=== PATIENT | female | born 1950 | race Caucasian/White ===

== ENCOUNTER 2017-06-24 10:17 | Emergency (ER) | payer OTHER ==
[2017-06-24] MEDS ORDERED: NS 500 ML IV ONE (11:05)
--- NOTE | 2017-06-24 11:10 | CPEKG ---
Heart Rate: 67 RR Interval: 896 P-R Interval: 160 QRSD Interval: 98 QT Interval: 388 QTC Interval: 410 P [place]: 47 QRS [place]: -7 T Wave [place]: 45 EKG Severity - NORMAL ECG - EKG Impression: SINUS RHYTHM Electronically Signed By: Tristen Fregoso 24-Jun-2017 15:34:09
[2017-06-24 11:46] LABS: % IMMATURE GRANULYOCYTES 0.5 % (0.0-1.1); ABSOLUTE IMMATURE GRANULOCYTES 0.05 10^3/uL (0.00-0.10); ADD DIFF? NO; ADD MORPH? NO; ADD SCAN? NO; ATYPICAL LYMPHOCYTE FLAG 0 (0-99); FRAGMENT RBC FLAG 0 (0-99); HEMOGLOBIN 15.7 g/dL (12.6-16.3); LEFT SHIFT FLG 0 (0-99); LIPEMIA HEMOLYSIS FLAG 90 (0-99); MEAN CELL HEMOGLOBIN 29.9 pg (27.9-34.1); MEAN CELL HEMOGLOBIN CONCENTR. 34.1 g/dL (32.4-36.7); MEAN CELL VOLUME 87.6 fL (81.5-99.8); MEAN PLATELET VOLUME 9.5 fL (8.7-11.7); PLATELET CLUMPS FLAG 0 (0-99); PLATELET COUNT 384 10^3/uL (150-400); RED BLOOD CELL COUNT 5.25 10^6/uL (4.18-5.33); RED CELL DISTRIBUTION WIDTH 13.2 % (11.5-15.2)
[2017-06-24 11:51] LABS: COLOR YELLOW; LEUKOCYTE ESTERASE,URINE NEGATIVE (NEGATIVE); NITRITE,URINE NEGATIVE (NEGATIVE)
[2017-06-24 11:56] LABS: INR 0.95 (0.83-1.16); PROTIME(PATIENT) 12.6 SEC (12.0-15.0)
[2017-06-24 11:57] LABS: APTT 24.1 SEC (23.0-38.0)
[2017-06-24 12:19] LABS: CREATINE KINASE-MB FRACTION 1.05 ng/mL (0.00-3.19); TROPONIN I < 0.012 ng/mL (0.000-0.034)
[2017-06-24 12:39] LABS: ANION GAP 10 mEq/L (8-16); CARBON DIOXIDE 23 mEq/l (22-31); CHLORIDE 101 mEq/L (97-110); CREATININE 0.8 mg/dL (0.6-1.0); GLOMERULAR FILTRATION RATE > 60; GLUCOSE 93 mg/dL (70-100); SODIUM 134 mEq/L (134-144)
--- NOTE | 2017-06-24 12:43 | EDPHY ---
H & P Time Seen by Provider: 06/24/17 10:20 HPI/ROS: HPI Fatigue, generalized weakness. 67-year-old female by private vehicle. She reports that she moved here from [place] about a month ago. She was supposed to move into a new apartment at this time. Her apartment has not been ready. She has been staying at friend's houses. She reports that since she has been out here she has felt fatigued and very low on energy. She also reports that she has not been sleeping well and has been very anxious. Sleeping only 4 hours a night and that she has felt her heart has been pounding. She denies any chest pain. She denies any shortness of breath at this time. No fever. No cough. ROS: Constitutional: No fever, no chills. As above. Eyes: No discharge. No changes in vision. ENT: No sore throat. No nasal congestion or rhinorrhea. Respiratory: No cough. No shortness of breath. Cardiac: No chest pain, as above. Gastrointestinal: No abdominal pain, no vomiting, no diarrhea. Genitourinary: No hematuria. No dysuria or increased frequency with urination. Musculoskeletal: No back pain. No neck pain. No myalgias or arthralgias. Skin: No rashes. Neurological: No headache. No focal weakness or altered sensation. Past medical history: COPD, asthma, hypertension. Social history: Former smoker. Denies alcohol. As above. Physical Exam: General Appearance: Alert, no distress. This patient is responding to questions appropriately and in full sentences. This patient appears well- hydrated and well-nourished. Eyes: Pupils equal and round no pallor or injection. No lid edema, erythema or injection. Respiratory: There are no retractions, lungs are clear to auscultation with good air movement bilaterally. No tachypnea. Cardiovascular: Regular rate and rhythm. No murmur. Gastrointestinal: Abdomen is soft and nontender, no masses, bowel sounds normal. No focal tenderness at McBurney's point. No Mireles sign. Neurological: Motor sensory function is grossly intact. Cranial nerves are normal. Gait is normal. Skin: Warm and dry, no rashes. Musculoskeletal: Neck is supple and nontender. Extremities are symmetrical. No significant lower extremity edema. All joints range without pain or impingement. Psychiatric: No agitation. No depression. Database: EKG: EKG time is 11:08 a.m.; EKG shows a narrow complex normal sinus rhythm with a ventricular rate of 67. The PA, QRS, QT intervals are within normal limits. There are no ST-T wave changes indicative of ischemic or injury pattern. No evidence of right heart strain. Interpreted by me. Imaging: Chest x-ray AP portable; the cardiac mediastinal silhouette is unremarkable. No evidence of infiltrate or pneumothorax. No acute cardiopulmonary disease process noted. Interpreted by me. Procedures: Emergency department course: IV placed. She was placed on a monitor. EKG performed and reviewed by myself. Vital signs have been reviewed and are normal. 12:50 p.m., patient re-evaluated. Resting comfortably at this time. I discussed the results of her emergency department workup with her including chest x-ray and EKG. I discussed possible mountain sickness affects from the altitude given that she recently moved from [place]. She also tells me that she thinks she has issues with anxiety. She does have a primary care physician at [facility]. She feels comfortable being discharged at this time. Plan will be to have her follow up with her primary care physician for re-evaluation in 2-3 days. I will also provide her with a take-home pack of Ativan for her anxiety. Has been instructed not to engage in any strenuous physical activity. Return to emergency department precautions were thoroughly reviewed with her. All of her questions were answered. She was discharged in good condition. Differential Diagnosis: The differential diagnosis on this patient includes but is not limited to altitude related illness, anxiety reaction. Pulmonary embolism, pneumonia, acute coronary syndrome, urinary tract infection, metabolic disorder, anemia unlikely. This represents a partial list of diagnoses considered. These considerations are based on history, physical exam, past history, reassessment and diagnostic testing. Smoking Status: Former smoker Constitutional: Initial Vital Signs Temperature (C) 36.5 C 06/24/17 10:38 Heart Rate 90 06/24/17 10:38 Respiratory Rate 17 06/24/17 10:38 Blood Pressure 123/90 H 06/24/17 10:38 O2 Sat (%) 96 06/24/17 10:38 O2 Delivery Mode Room Air Allergies/Adverse Reactions: No Known Allergies Allergy (Unverified 06/24/17 10:34) Home Medications: Medication Instructions Recorded ALENDRONATE SODIUM 06/24/17 Advair 100/50 (*) 06/24/17 Captopril 06/24/17 Incrose Elliptra 06/24/17 QUEtiapine FUMARATE 06/24/17 Symbicort 160-4.5 Mcg Inh (*) 06/24/17 buPROPion 06/24/17 traZODone 06/24/17 Medical Decision Making - Diagnostics Imaging Results: Imaging Impressions Chest X-Ray 06/24/17 11:05 Impression: No acute abnormality. - Data Points Laboratory Results: Laboratory Results 06/24/17 11:20 06/24/17 11:20 06/24/17 06/24/17 06/24/17 11:40 11:20 11:20 WBC RBC Hgb Hct MCV MCH MCHC RDW Plt Count MPV Neut % (Auto) Lymph % (Auto) [place] % (Auto) Eos % (Auto) Baso % (Auto) Nucleat RBC Rel Count Absolute Neuts (auto) Absolute Lymphs (auto) Absolute Monos (auto) Absolute Eos (auto) Absolute Basos (auto) Absolute Nucleated RBC Immature Gran % Immature Gran # PT INR APTT D-Dimer Sodium 134 mEq/L mEq/L (134-144) Potassium 4.0 mEq/L mEq/L (3.5-5.2) Chloride 101 mEq/L mEq/L (97-110) Carbon Dioxide 23 mEq/l mEq/l (22-31) Anion Gap 10 mEq/L mEq/L (8-16) BUN 6 mg/dL L mg/dL (7-23) Creatinine 0.8 mg/dL mg/dL (0.6-1.0) Estimated GFR > 60 Glucose 93 mg/dL mg/dL (70-100) Calcium 10.0 mg/dL mg/dL (8.5-10.4) Creatine Kinase 107 IU/L IU/L (0-156) CK-MB (CK-2) Fraction 1.05 ng/mL ng/mL (0.00-3.19) Troponin I < 0.012 ng/mL ng/mL (0.000-0.034) NT-Pro-B Natriuret Pep 231 pg/mL H pg/mL (0-125) Urine Color YELLOW Urine Appearance CLEAR Urine pH 8.0 H (5.0-7.5) Ur Specific Follett 1.002 (1.002-1.030) Urine Protein NEGATIVE (NEGATIVE) Urine Ketones NEGATIVE (NEGATIVE) Urine Blood NEGATIVE (NEGATIVE) Urine Nitrate NEGATIVE (NEGATIVE) Urine Bilirubin NEGATIVE (NEGATIVE) Urine Urobilinogen NEGATIVE EU EU (0.2-1.0) Ur Leukocyte Esterase NEGATIVE (NEGATIVE) Urine Glucose NEGATIVE (NEGATIVE) 06/24/17 06/24/17 11:20 11:20 WBC 10.20 10^3/uL H 10^3/uL (3.80-9.50) RBC 5.25 10^6/uL 10^6/uL (4.18-5.33) Hgb 15.7 g/dL g/dL (12.6-16.3) Hct 46.0 % % (38.0-47.0) MCV 87.6 fL fL (81.5-99.8) MCH 29.9 pg pg (27.9-34.1) MCHC 34.1 g/dL g/dL (32.4-36.7) RDW 13.2 % % (11.5-15.2) Plt Count 384 10^3/uL 10^3/uL (150-400) MPV 9.5 fL fL (8.7-11.7) Neut % (Auto) 73.5 % % (39.3-74.2) Lymph % (Auto) 13.7 % L % (15.0-45.0) [place] % (Auto) 11.0 % % (4.5-13.0) Eos % (Auto) 0.2 % L % (0.6-7.6) Baso % (Auto) 1.1 % % (0.3-1.7) Nucleat RBC Rel Count 0.0 % % (0.0-0.2) Absolute Neuts (auto) 7.50 10^3/uL H 10^3/uL (1.70-6.50) Absolute Lymphs (auto) 1.40 10^3/uL 10^3/uL (1.00-3.00) Absolute Monos (auto) 1.12 10^3/uL H 10^3/uL (0.30-0.80) Absolute Eos (auto) 0.02 10^3/uL L 10^3/uL (0.03-0.40) Absolute Basos (auto) 0.11 10^3/uL H 10^3/uL (0.02-0.10) Absolute Nucleated RBC 0.00 10^3/uL 10^3/uL (0-0.01) Immature Gran % 0.5 % % (0.0-1.1) Immature Gran # 0.05 10^3/uL 10^3/uL (0.00-0.10) PT 12.6 SEC SEC (12.0-15.0) INR 0.95 (0.83-1.16) APTT 24.1 SEC SEC (23.0-38.0) D-Dimer 0.43 ug/mLFEU ug/mLFEU (0.00-0.50) Sodium Potassium Chloride Carbon Dioxide Anion Gap BUN Creatinine Estimated GFR Glucose Calcium Creatine Kinase CK-MB (CK-2) Fraction Troponin I NT-Pro-B Natriuret Pep Urine Color Urine Appearance Urine pH Ur Specific Follett Urine Protein Urine Ketones Urine Blood Urine Nitrate Urine Bilirubin Urine Urobilinogen Ur Leukocyte Esterase Urine Glucose Medications Given: Discontinued Medications Sodium Chloride (Ns) 500 mls @ 1,000 mls/hr IV EDNOW ONE PRN Reason: Protocol Stop: 06/24/17 11:34 Last Admin: 06/24/17 11:28 Dose: 500 mls Departure - Departure Disposition: Home, Routine, Self-Care Clinical Impression: Fatigue, Anxiety Condition: Good Instructions: Fatigue (ED) Additional Instructions: Read and follow provided instructions. Follow-up with your primary care physician in 2-3 days for re-evaluation. Return to the emergency department for worsening symptoms, chest pain, shortness of breath or other serious concerns. Ativan 1 mg tablets for anxiety: 1, 1 mg tablet at night to help you sleep and to help your anxiety. Do not drive on this medication. Avoid strenuous activity. Keep well hydrated. Referrals: [facility] [Other] - As per Instructions
[2017-06-24] MEDS ORDERED: LORAZEPAM 1 MG PREPACK#4 BTL TAKEHOME ONE (13:02)
[2017-06-24 13:19] VITALS: BP 152/86; PULSE 81; RESP 17; TEMP 98.8; O2SAT 96
== END 2017-06-24 13:18 | disposition home or self-care (01) ==
DX: R53.83 Other fatigue (principal); F41.9 Anxiety disorder, unspecified; E86.9 Volume depletion, unspecified; J44.9 Chronic obstructive pulmonary disease, unspecified; I10 Essential (primary) hypertension; Z87.891 Personal history of nicotine dependence

== ENCOUNTER → 2019-02-28 | Outpatient (CLI) | payer OTHER | LOC: FCPNEURO 21:30 ==